=== PATIENT | male | born 1965 | race Caucasian/White ===

== ENCOUNTER 2022-11-05 08:35 | Outpatient (RCR) | payer OTHER, SELFPAY | END 2022-11-18 14:00 | disposition home or self-care (01) | LOC: PT 08:35 | PROVIDERS: PCP Nurse Practitioner Family | DX: M19.172 Post-traumatic osteoarthritis, left ankle and foot (principal) | CPT/HCPCS: 97010; 97110; 97112; 97140 ==

== ENCOUNTER 2023-04-17 07:57 | Outpatient (OUT) | payer SELFPAY ==
--- NOTE | 2023-04-17 | CT_ITS ---
The [address] [address] Patient Name: ELISEO GANDARA MRN: [id number] date: 1965 Sex: M Assigned Patient Location: CT Current Patient Location: CT Accession/Order Number: [id number] Exam Date: 04/17/2023 08:05 Report Date: 04/18/2023 16:22 At the request of: BRONWYN PERDOMO Procedure: CT femur RT w con CT scan of the right lower extremity with contrast 04/17/2023. HISTORY:The patient has a history of a right total hip prosthesis and has pain in the right thigh. Evaluate for possible loosening of the hardware. COMPARISON: None. TECHNIQUE: Multiple contiguous axial CT images of the right lower extremity were obtained from the supra-acetabular region through the proximal tibial metaphysis following the intravenous administration of contrast. Sagittal and coronal reformatted images were made. Dose reduction techniques were achieved by using automated exposure control and/or adjustment of mA and/or kV according to patient size and/or use of iterative reconstruction technique. FINDINGS: There appear to be moderate degenerative changes of the visualized inferior aspect of the right sacroiliac joint and moderate degenerative changes of the pubic symphysis. No acute fracture or dislocation is seen. There is a right total hip prosthesis which appears intact. There is no dislocation. No significant lucency is identified adjacent to the prosthesis. No periprosthetic fracture is seen. There does not appear to be a significant joint effusion of the right hip to the extent of visualization. No fluid collection is identified in the region of the right hip. There are mild atherosclerotic vascular calcifications seen of the femoral artery. There is no Dean cyst. CT/CT femur RT w con IMPRESSION: 1. Satisfactory CT appearance of a right total hip prosthesis without evidence of hardware complication, fracture, dislocation or loosening of the prosthesis. 2. There appear to be moderate degenerative changes of the visualized inferior aspect of the right sacroiliac joint and the pubic symphysis. Electronically authenticated by: ZAK LING Date: 04/18/2023 16:22
== END 2023-04-17 07:58 | disposition home or self-care (01) ==
LOC: CT 07:58
PROVIDERS: PCP Nurse Practitioner Family; Visit Provider Orthopaedic Surgery
DX: G93.2 Benign intracranial hypertension (principal); Z96.641 Presence of right artificial hip joint; T84.030D Mechanical loosening of internal right hip prosthetic joint, subsequent encounter
CPT/HCPCS: 73701; Q9967

== ENCOUNTER 2023-10-15 08:24 | Outpatient (OUT) | payer OTHER, SELFPAY ==
[2023-10-15 08:45] LABS: Basophils Percent Auto 0.8 % (0.2-2.0); Eosinophils Absolute Auto 0.2 10^3/uL (0.0-0.7); Hematocrit 45.5 % (42.0-54.0); Hemoglobin 15.2 g/dL (14.0-18.0); Immature Granulocytes Abs Auto 0.02 10^3/uL (0.00-0.03); Immature Granulocytes Pct Auto 0.4 % (0.0-0.5); Lymphocytes Absolute Auto 1.3 10^3/uL (1.2-3.8); Lymphocytes Percent Auto 24.9 % (20.5-60.0); Mean Corpuscular HGB Conc 33.4 g/dL (29.9-35.2); Mean Corpuscular Hemoglobin 28.4 pg (25.9-34.0); Mean Platelet Volume 9.5 fL (9.5-13.5); Monocytes Absolute Auto 0.3 10^3/uL (0.3-0.8); Monocytes Percent Auto 6.5 % (1.7-12.0); Neutrophils Absolute Auto 3.4 10^3/uL (1.4-6.5); Neutrophils Percent Auto 64.4 % (43.0-75.0); Platelet Count 185 10^3/uL (150-450); Red Blood Count 5.35 10^6/uL (4.70-6.10); Red Cell Distribution Width 12.8 % (11.0-15.0); White Blood Count 5.3 10^3/uL (4.0-11.0)
[2023-10-15 10:01] LABS: Estimated Average Glucose 114 mg/dL; Glycohemoglobin A1C 5.6 % (4.5-6.2)
[2023-10-15 10:19] LABS: Alanine Aminotransferase 19 U/L (16-63); Albumin Globulin Ratio 1.4; Albumin Level 3.8 g/dL (3.4-5.0); Alkaline Phosphatase 81 U/L (46-116); Anion Gap 14.7; Aspartate Amino Transferase 15 U/L (15-37); BUN Creatinine Ratio 14.9; Bilirubin Total 0.5 mg/dL (0.2-1.0); Calcium 8.9 mg/dL (8.5-10.1); Carbon Dioxide 24.2 mmol/L (21.0-32.0); Chloride 106 mmol/L (98-107); Cholesterol 206 mg/dL (<=200); Estimated GFR (African America >60 (>=60); Estimated GFR (Non-African Ame >60 (>=60); Free T3 3.13 pg/mL (2.18-3.98); Globulin 2.8 g/dL; Glucose 130 mg/dL (74-106); HDL Cholesterol 41 mg/dL (40-60); Potassium 3.9 mmol/L (3.5-5.1); Sodium 141 mmol/L (136-145); Thyroid Stimulating Hormone 1.798 uIU/mL (0.358-3.740); Total Protein 6.6 g/dL (6.4-8.2); Triglycerides 135 mg/dL (<=150)
[2023-10-15 10:31] LABS: Prostate Specific Antigen Scrn 3.52 ng/mL (<=4.00)
[2023-10-16 12:09] LABS: Insulin 8.7 uIU/mL (2.6-24.9)
== END 2023-10-15 08:25 | disposition home or self-care (01) ==
LOC: LAB 08:24
PROVIDERS: PCP Nurse Practitioner Family; Visit Provider Nurse Practitioner Family
DX: I10 Essential (primary) hypertension (principal); Z12.5 Encounter for screening for malignant neoplasm of prostate; E03.9 Hypothyroidism, unspecified
CPT/HCPCS: 36415; 80053; 80061; 83036; 83525; 84436; 84443; 84481; 84550; 85025; G0103